=== PATIENT | female | born 1985 | race Two or more races ===

== ENCOUNTER 2025-06-23 08:06 | Emergency (ER) | payer OTHER ==
[2025-06-23 08:18] VITALS: BP 117/77; PULSE 81; RESP 20; TEMP 98.5; BMI 33.7
[2025-06-23] MEDS ORDERED: ACETAMINOPHEN 500 MG TABLET (FP) ONE (08:45)
[2025-06-23] MEDS ORDERED: KETOROLAC TROMETHAMINE 30 MG/1 ML VIAL ONE (08:45)
[2025-06-23] MEDS: KETOROLAC TROMETHAMINE 30 MG/1 ML VIAL IM ONE (08:51)
[2025-06-23] MEDS: ACETAMINOPHEN 500 MG TABLET (FP) PO ONE (08:52)
[2025-06-23] MEDS ORDERED: METHOCARBAMOL 500 MG TABLET ONE (09:49)
[2025-06-23] MEDS: METHOCARBAMOL 500 MG TABLET PO ONE (10:11)
== END 2025-06-23 10:11 | disposition home or self-care (01) ==
LOC: JERFT 08:06
PROC: 3E0233Z Introduction of Anti-inflammatory into Muscle, Percutaneous Approach (ICD-10-PCS; principal; 2025-06-23)
DX: S46.011A Strain of muscle(s) and tendon(s) of the rotator cuff of right shoulder, initial encounter (principal); S80.01XA Contusion of right knee, initial encounter; W10.8XXA Fall (on) (from) other stairs and steps, initial encounter
CPT/HCPCS: 73030-TC-RT-FY; 73560-TC-RT-FY; 99284-25